=== PATIENT | male | born 1970 ===

== ENCOUNTER 2017-05-18 05:09 | Inpatient (IN) | payer OTHER ==
[2017-05-18] VITALS (15 sets, daily range): BP systolic 103–138; BP diastolic 60–89
[~2017-05-18] VITALS: Ht 172.7 cm; Wt 76.2 kg
[~2017-05-18 05:09] MED LIST: GLIPIZIDE5 MG ORAL; [UNRECOGNIZED DRUG - OTHER]
[2017-05-18] MEDS ORDERED: ceFAZolin sod 2 GM in D5W 110 ML IVP ONE (06:00)
[2017-05-18] MEDS ORDERED: GLIPIZIDE5 MG ORAL (06:08)
[2017-05-18] MEDS ORDERED: METFORMIN HCL1000 M3 PO (06:08)
--- NOTE | 2017-05-18 06:32 | Anethesia Preoperative Eval ---
Anesthesia Pre-op PMH/ROS General Date of Evaluation: May 18, 2017 Anesthesiologist: Micah ASA Score: ASA 2 Mallampati Score Class I : Soft palate, uvula, fauces, pillars visible Class II: Soft palate, uvula, fauces visible Class III: Soft palate, base of uvula visible Class IV: Only hard plate visible Mallampati Classification: Class II Surgeon: Melody Diagnosis: Lumbar radiculopathy Surgical Procedure: L5-S1 microdiscectomy Anesthesia History: none Family History: no anesthesia problems Allergies: Coded Allergies: No Known Allergies (Unverified , 07/12/14) Medications: see eMAR Past Medical History Cardiovascular: Denies: CAD, HTN, MO, arrhythmia, other, valve dz Pulmonary: Denies: COPD, KIMO, asthma, other Gastrointestinal/Genitourinary: Denies: CRI, ESRD, GERD, other Neurologic/Psychiatric: Denies: CVA, TIA, dementia, depression/anxiety, other Endocrine: Reports: DM, Denies: hypothyroidism, other, steroids HEENT: Denies: BO[place] (L), [place] (R), cataract (L), cataract (R), glaucoma, other Hematology/Immune: Denies: DVT, anemia, bleeding disorder, other Musculoskeletal/Integumentary: Denies: DDD, DJD, OA, RA, edema, other PSxH Narrative: right eye sx, ex-lap, right arm sx Anesthesia Pre-op Phys. Exam Physician Exam Last Vital Signs Date Time Temp Pulse Resp B/P Pulse Ox O2 Delivery O2 Flow Rate FiO2 05/18/17 06:01 97.7 66 20 129/89 98 Room Air Constitutional: NAD Cardiovascular: RRR Respiratory: CTA Airway Exam Mallampati Score: Class II MO: full ROM: full Teeth: intact Anesthesia Pre-op A/P Labs see chart Studies Pre-op Studies: EKG - sr Risk Assessment & Plan Assessment: ASA II Plan: GA Status Change Before Surgery: No Pre-Antibiotics Drug: Ancef 2g Given Within 1 Hr of Incision: ANGELO Patel M.D. May 18, 2017 06:31
[2017-05-18] MEDS ORDERED: Vancomycin 1gm inj IVPB ONE (06:38)
[2017-05-18] MEDS ORDERED: Bupivacaine w/Epi 0.5% 30ml Vial INJ ONE (06:38)
[2017-05-18] MEDS ORDERED: Thrombin 5000 units TOPIC ONE (06:38)
[2017-05-18] MEDS ORDERED: Thrombin 5000 units spray kit TOPIC ONE (06:39)
[2017-05-18] MEDS ORDERED: Gelfoam Absorbable 1gm powder pkt TOPIC ONE (06:39)
[2017-05-18] MEDS ORDERED: Bacitracin 50000 Units Vial ONE (06:39)
[2017-05-18] MEDS ORDERED: Lacri-Lube Opth Oint 3.5gm ONE (06:44)
--- NOTE | 2017-05-18 07:02 | Pre-Procedure Note/Attestation ---
Pre-Procedure Note/Attestation Complete Prior to Procedure Procedure Narrative: L5/S1 laminotomies, medial facetectomy and microdiscectomies Indications for Procedure Pre-Operative Diagnosis: hnp L5/S1 with radiculopathies Attestation I attest that I discussed the nature of the procedure; its benefits; risks and complications; and alternatives (and the risks and benefits of such alternatives ), prior to the procedure, with the patient (or the patient's legal independent sales representative). I attest that, if there was a reasonable possibility of needing a blood transfusion, the patient (or the patient's legal independent sales representative) was given the [place] [employer] [facility] standardized written summary, pursuant to the Diego Wolford Blood Safety Act ([place] Health and Safety Code # 1645, as amended). I attest that I re-evaluated the patient just prior to the surgery and that there has been no change in the patient's H&P, except as documented below: REGULO NEAL May 18, 2017 07:02
[2017-05-18] MEDS ORDERED: LR 1000ml 1,000 ML IVLG SCH (07:27)
--- NOTE | 2017-05-18 07:27 | Immediate Post-Op Evaluation ---
Immediate Post-Op Evalulation Immediate Post-Op Evalulation Procedure: L5-S1 microdecopression and microdiscectomy Date of Evaluation: May 18, 2017 Time of Evaluation: 09:39 IV Fluids: 1.4L Blood Products: 0 Estimated Blood Loss: 25 Urinary Output: 175 Blood Pressure Systolic: 106 Blood Pressure Diastolic: 60 Pulse Rate: 75 Respiratory Rate: 16 O2 Sat by Pulse Oximetry: 98 Temperature (Fahrenheit): 97.8 Pain Score (1-10): 0 Nausea: No Vomiting: No Complications 0 Patient Status: awake, reacts, patent, none Hydration Status: adequate Drug: Ancef 2g Given Within 1 Hr of Incision: Yes Time Given: 07:15 ANGELO ERIC M.D. May 18, 2017 07:27
[2017-05-18] MEDS ORDERED: Midazolam 2mg/2ml Inj IVP PRN (07:30)
[2017-05-18] MEDS ORDERED: Hydromorphone 0.5mg/0.5ml inj IVP PRN (07:30)
[2017-05-18] MEDS ORDERED: DiphenhydrAMINE 50mg/ml Inj IVP PRN (07:30)
[2017-05-18] MEDS ORDERED: Metoclopramide 10mg/2ml Inj IVP PRN (07:30)
[2017-05-18] MEDS ORDERED: fentaNYL 100 mcg/2 mL IV PRN (07:30)
--- NOTE | 2017-05-18 09:37 | Brief Operative Note ---
Immediate Post Operative Note Operative Note Pre-op Diagnosis: hnp L5/S1 with radiculopathies Procedure: L5S1 LAMINOTOMIES AND MICRODISCECTOMIES Post-op Diagnosis: LUMBAR RADIC Post-op Diagnosis: same as pre-op Findings: consistent w/pre-op dx studies Surgeon: VAL Manager Intensive Care: EDITH Anesthesia: general Specimen: none Complications: none Condition: stable Fluids: 1.4 LITERS Estimated Blood Loss: minimal - 25CC Drains: none Implant(s) used?: No REGULO NEAL May 18, 2017 09:37
--- NOTE | 2017-05-18 09:38 | 48 Hour Post Anesthesia Eval ---
Post Anesthesia Evaluation Procedure: L5-S1 microdecopression and microdiscectomy REGULO NEAL May 18, 2017 09:38
[2017-05-18] MEDS ORDERED: NS w/KCl 20mEq 1,000 ML IV SCH (09:59)
[2017-05-18] MEDS ORDERED: Naloxone 0.4mg/ml Inj IVP PRN ×2 (10:00→12:15)
[2017-05-18] MEDS ORDERED: Norco 7.5mg/325mg tab ORAL PRN ×3 (10:00→12:15)
[2017-05-18] MEDS ORDERED: HYDROmorphone 1mg/ml Carpuject SUBQ PRN (10:00)
[2017-05-18] MEDS ORDERED: Norco 5mg/325mg tab ORAL PRN ×2 (10:00→12:15)
[2017-05-18] MEDS: HYDROmorphone 1mg/ml Carpuject SUBQ PRN ×2 (12:44→20:58)
[2017-05-18] MEDS ORDERED: ceFAZolin sod 1 GM in D5W 55 ML IV SCH (14:00)
--- NOTE | 2017-05-18 14:12 | Diagnostic Imaging Report ---
Indication: Back pain Comparison: None Findings: Fluoroscopic views of the lumbar spine were obtained. Crosstable lateral view demonstrating posterior dislocation at L5-S1. Impression: Intraoperative imaging
[2017-05-18] MEDS: ceFAZolin sod 1 GM in D5W 55 ML IV SCH ×2 (14:53→23:06)
[2017-05-18] MEDS: NS w/KCl 20mEq 1,000 ML IV SCH ×2 (14:53→23:30)
[2017-05-18] MEDS: NovoLOG Insulin Flexpen SUBQ SCH ×2 (16:48→20:12)
[2017-05-18] MEDS ORDERED: Docusate 100mg cap ORAL SCH (18:00)
[2017-05-18] MEDS: Docusate 100mg cap ORAL SCH (18:32)
--- NOTE | 2017-05-18 21:45 | Operative Note - Dictated ---
DATE OF OPERATION: 05/18/2017 PREOPERATIVE DIAGNOSIS: L5-S1 large disk herniation with stenosis and bilateral lower extremity radiculopathy. POSTOPERATIVE DIAGNOSIS: L5-S1 large disk herniation with stenosis and bilateral lower extremity radiculopathy. PROCEDURE PERFORMED: 1. Bilateral L5-S1 interlaminar laminotomy, medial facetectomy, foraminotomies, and microdiskectomy. 2. Intraoperative use of fluoroscopy. 3. Intraoperative use of microscope SURGEON: Fredo Oliver M.D. VAT WASHER: Ulises Galeana M.D. ANESTHESIOLOGIST: Allyson Yap M.D. ANESTHESIA: General with endotracheal anesthesia. INTRAOPERATIVE FINDINGS: A large central and left and right paracentral disk herniation with concussion of the thecal sac and cauda equina and compression of the traversing bilateral S1 nerve root with foraminal stenosis for the exiting L5 nerve roots. ESTIMATED BLOOD LOSS: 25 mL. FLUIDS: 1.4 liters. INDICATIONS: The patient is a pleasant male with failed nonoperative treatments. Option for above treatment was given. Risks, alternatives, and benefits were discussed with patient at length. Risks include, but are not limited to, anesthesia complications including , medical complications including liver, kidney, cardiopulmonary deficits, bleeding, infection, dural tear, CSF leak, nerve root injury, pars fracture, instability, reherniation, and continued symptoms. The patient understood and wished to proceed. The risks were understood. DESCRIPTION OF OPERATION: The patient was brought to the operating room supine on a stretcher. Subsequently, appropriate IV lines were placed by the anesthesiologist and 2 g of Ancef was administered. Anesthesia was induced. The patient was successfully intubated. Sequential compression devices were placed on to the bilateral lower extremities. The patient was gently turned prone onto the Kervin frame table. All bony prominences were well padded and the abdomen was assured to lay freely. The L5-S1 interspace was identified via fluoroscopy before the skin incision. The patient was prepped and draped in usual sterile fashion with alcohol, chlorhexidine scrub, ChloraPrep, and Ioban draping. At this point, anesthesia was carried out over the L5-S1 interspace. Superficial cervical fascia and superficial hemostasis was achieved. The L5-S1 laminas were positively identified. Attention was first diverted to the left L5-S1 lamina. A monopolar cautery was used to dissect the L5-S1 lamina and a black topper retractor was set into place. The radiopaque marker was placed at the level of the S1 pedicle and the L5-S1 levels were positively identified. The whole procedure was done with the aid of an intraoperatively sterilely draped microscope. At this point, with the use of a high-speed drill straight curved curette #1 through #5 Kerrison punches and interlaminar laminotomy, medial facetectomy, and foraminotomy was completed. The ligamentum flavum was removed. Complete decompression of the lateral recess entailed including the foraminal region for the exiting L5 nerve root. At this point, once the medial aspect of the superior facet was skeletonized with the medial aspect of the S1 pedicle a [place] 4 retractor was used to gently medially retract the neural elements. The nerve root retractor was used to stabilize the neural elements and the disk herniation was found on the left side at L5-S1 causing compression of neural elements. With a #11 blade, a slit incision was carried out in the anulus. With the use of pituitary rongeur, Shirley curette, nerve hook, Samia Santos as well as a Peapod a microdiskectomy entailed all herniated disk material was removed until the floor of the canal was flat. There was no further impingement on the neural elements. At this point, a Valsalva 40 mmHg was done and there was no CSF leak. Attention now was diverted to the right side. With monopolar cautery, the laminas were dissected and the lateral aspect of the joint capsule was well preserved as it was on the contralateral side. The black topper retractor was used on the right side and with a high speed drill, straight and curved curette #1 through #5 Kerrison punches and a nerve hook, an interlaminar laminotomy, medial facetectomy, foraminotomy and removal of the ligamentum flavum was done. At this point, a laminotomy was done and the medial aspect of the superior facet of S1 was removed until it was flushed with the medial aspect of the S1 pedicle. Once this was done, a [place] 4 retractor was used to gently medially retract the neural elements including the traversing S1 nerve root and a nerve root retractor was used to stabilize the neural elements. At this point, the floor of the canal was checked and there is a disk herniation which was impinging on the right S1 nerve root. A #11 blade was used to make a skin incision in the anulus and with an Shirley curette, dental probe, [place] probe, Gracia, pituitary, and Peapod all loose disk material was used. Disk space irrigation was done and all loose disk material was removed. At this point, a Valsalva 40 mmHg was done. There was no CSF leak. All sponge, needle and instrument counts were correct. At this point, the floor of canal was checked again and was found to be flat. Once this was completed, attention now was diverted to closure. The wound was copiously irrigated with triple antibiotic solution. A 1 g of vancomycin powder was placed. The dorsal lumbar fascia was closed with #1 Vicryl sutures in a watertight interrupted fashion. The subdermal subcuticular layers were closed with 2-0 Vicryl sutures. The skin was closed with Dermabond, Telfa dressing, and Tegaderm tape was placed. The patient was turned supine, was extubated in stable condition, and was taken to the recovery room in stable condition and was admitted to the hospital for observation and further treatment. Fredo Oliver M.D. DR: JERRY JOB#: [id number] CC:
[2017-05-19 04:00] VITALS: BP 120/71
[2017-05-19] MEDS: ceFAZolin sod 1 GM in D5W 55 ML IV SCH (06:28)
[2017-05-19] MEDS: NovoLOG Insulin Flexpen SUBQ SCH ×2 (06:30→12:25)
[2017-05-19] MEDS: Norco 7.5mg/325mg tab ORAL PRN ×2 (06:31→13:59)
[2017-05-19 08:00] VITALS: BP 123/82
[2017-05-19] MEDS ORDERED: fentaNYL 250mcg/5ml ONE (08:15)
[2017-05-19] MEDS ORDERED: Midazolam 2mg/2ml Inj ONE (08:15)
[2017-05-19] MEDS ORDERED: Sterile Water Irrig 1000ml IRRIG ONE (08:15)
[2017-05-19] MEDS ORDERED: LR 1000ml ONE (08:15)
[2017-05-19] MEDS ORDERED: Metoclopramide 10mg/2ml Inj ONE (08:15)
[2017-05-19] MEDS ORDERED: Zemuron 50mg/5ml Inj IV ONE (08:15)
[2017-05-19] MEDS ORDERED: NS Irrig 1000ml ONE (08:15)
[2017-05-19] MEDS ORDERED: Lidocaine 1% MPF 10mg/ml 5ml ONE (08:15)
[2017-05-19] MEDS ORDERED: Tubing IV Secondary IV ONE (09:02)
[2017-05-19 09:09] VITALS: BP 123/82
[2017-05-19] MEDS ORDERED: Propofol 10mg/ml 100ml btl IV ONE (09:17)
[2017-05-19] MEDS: NS w/KCl 20mEq 1,000 ML IV SCH (09:35)
[2017-05-19] MEDS: Docusate 100mg cap ORAL SCH (09:35)
[2017-05-19 12:31] VITALS: BP 139/83
--- NOTE | 2017-05-19 16:23 | 48 Hour Post Anesthesia Eval ---
Post Anesthesia Evaluation Procedure: L5-S1 microdecopression and microdiscectomy Date of Evaluation: May 19, 2017 Time of Evaluation: 16:22 Blood Pressure Systolic: 116 0: 52 Pulse Rate: 74 Respiratory Rate: 20 Temperature (Fahrenheit): 97.6 O2 Sat by Pulse Oximetry: 98 Airway: patent Nausea: No Vomiting: No Pain Intensity: 2 Hydration Status: adequate Cardiopulmonary Status: stable Mental Status/LOC: patient returned to baseline Follow-up Care/Observations: n/a Post-Anesthesia Complications: none Follow-up care needed: ready to discharge EMILIA WEST M.D. May 19, 2017 16:23
[2017-05-19 16:47] VITALS: BP 131/91
[2017-05-19] MEDS ORDERED: NORCO 5-325 TA1 EAC1 ORAL (17:11)
[2017-05-19] MEDS ORDERED: NAPROSYN500 M1 ORAL (17:12)
--- NOTE | 2017-05-22 09:06 | Discharge Summary ---
Discharge Summary Hospital Course Date of Admission May 18, 2017 at 05:09 Date of Discharge May 19, 2017 at 17:50 Admitting Diagnosis L5-S1 large disk herniation with stenosis and bilateral lower extremity radiculopathy. Reason for Hospitalization: elective surgery ANTONIO Castro is a 47 year old male who was admitted on May 18, 2017 at 05:09 for L5-S1 Disc Herniation and bilateral lower extremities radiculopathy. The patient was admitted for elective surgery. Procedures s/p 05/[address] Oliver , dr Galeana ( food and nutrition services assistant) 1. Bilateral L5-S1 interlaminar laminotomy, medial facetectomy, foraminotomies, and microdiskectomy. 2. Intraoperative use of fluoroscopy. 3. Intraoperative use of microscope Hospital Course s/p surgery course of recovery uneventful neurovascular intact pain management incision C/D/I ambulated with PT initially IVF tolerated diet voided stable for dc home fup with surgeon as outpatient as advised FINAL DIAGNOSIS L5-S1 large disk herniation with stenosis and bilateral lower extremity radiculopathy. s/p Bilateral L5-S1 interlaminar laminotomy, medial facetectomy, foraminotomies, and microdiskectomy Discharge Medications Continued Medications: Hydrocodone Bit/Acetaminophen 5-325* ([place] 5-325 Tablet*) 1 Each Tablet 1 TAB ORAL Q6HR PRN for For Pain, #40 TAB Naproxen* (Naprosyn*) 500 Mg Tablet 500 MG ORAL TWICE A DAY, #40 TAB Discharge Condition Upon Discharge: stable Discharge Disposition Patient was discharged to Home (01) Discharge Diagnoses: Discharge Instructions Discharge Instructions Special Instructions I have been assigned to complete a D/C Summary on this account. I was not involved in the patient management Naye Goode NP (Vanchtein) May 22, 2017 09:06
== END 2017-05-19 17:50 | disposition home or self-care (01) | DRG 520 ==
LOC: SDSOVERFLO 05:09 → 3E 11:09
PROC: 01NB0ZZ Release Lumbar Nerve, Open Approach (ICD-10-PCS; principal; 2017-05-18 07:00)
PROC: 0SB40ZZ Excision of Lumbosacral Disc, Open Approach (ICD-10-PCS; principal; 2017-05-18 07:00)
DX: M51.27 Other intervertebral disc displacement, lumbosacral region (principal); E11.9 Type 2 diabetes mellitus without complications; M48.07 Spinal stenosis, lumbosacral region
CPT/HCPCS: 72020; 76001; 82962; 87081; 94664; 94760; J1815; J2250; J2405; J2765